=== PATIENT | male | born 1985 | race Caucasian/White ===

== ENCOUNTER 2022-02-18 18:53 | Emergency (ER) | payer OTHER ==
[~2022-02-18] VITALS: Ht 188 cm; Wt 85.0 kg
[2022-02-18] MEDS ORDERED: ONDANSETRON HCL 4MG/2ML INJ IV ONE (19:45)
[2022-02-18 21:23] VITALS: BP 122/76
== END 2022-02-18 21:25 | disposition home or self-care (01) ==
LOC: ER 18:53
DX: T17.228A Food in pharynx causing other injury, initial encounter (principal); K56.699 Other intestinal obstruction unspecified as to partial versus complete obstruction; X58.XXXA Exposure to other specified factors, initial encounter; Y93.89 Activity, other specified; Y92.9 Unspecified place or not applicable
CPT/HCPCS: 70360; 71046; 99284